=== PATIENT | female | born 1960 | race Caucasian/White ===

== ENCOUNTER 2022-08-10 04:38 | Emergency (ER) | payer BC, SELFPAY ==
--- NOTE | 2022-08-10 04:42 | ED_ITS ---
HPI - Epistaxis General Chief complaint: Epistaxis Stated complaint: Nose bleed Time Seen by Provider: 08/10/22 04:41 Related Data Allergies Allergy/AdvReac Type Severity Reaction Status Date / Time Penicillins Allergy Unknown Verified 12/05/19 09:48 [facility] Social History Social History (System 12/05/19 @ 09:48 by Rachael Scott) Smoking status: Never smoker Alcohol intake: current Discharge Plan Discharge Follow-up/Referrals: Ayden,Vj Newell MD [Primary Care Provider] -
[2022-08-10 04:43] VITALS: BP 153/100; PULSE 68; RESP 14; TEMP 36.6; O2SAT 100
--- NOTE | 2022-08-10 05:06 | ED.EPISTAXIS ---
HPI - Epistaxis General Chief complaint: Epistaxis Stated complaint: Nose bleed Time Seen by Provider: 08/10/22 04:41 History of Present Illness HPI Narrative: Patient is a 61-year-old female with a history of hypertension, diabetes presenting with epistaxis. Patient states that approximately 12:00 she first developed a nosebleed. States that it has been coming and going since then. States that she has been using a rolled up tissue to put in her nostril to stop it. She has not applied consistent pressure. The bleeding continued and was interfering with sleep so she came in for evaluation. Patient states that many years ago she required cauterization for recurrent nosebleeds. Patient is not on blood thinners. States she takes a daily aspirin. Denies shortness of breath, cough, chest pain, abdominal pain, vomiting. Related Data Allergies Allergy/AdvReac Type Severity Reaction Status Date / Time Penicillins Allergy Unknown Verified 12/05/19 09:48 Review of Systems Review of Systems: All systems reviewed & are unremarkable except as noted in HPI and below PMFSH Social History Social History Smoking status: Never smoker Alcohol intake: current Exam Narrative: GENERAL: Well-appearing, well-nourished, and in no acute distress. HEAD: Normocephalic, atraumatic. EYES: PERRLA and EOMI. ENT: Right nostril with epistaxis, appears to be a small source of bleeding on the septum. Mucous membranes moist. NECK: Supple. CHEST: Clear to auscultation. No respiratory distress. HEART: Regular rate and rhythm. No murmur heard. Normal peripheral pulses. ABDOMEN: Soft, nontender, nondistended, normal active bowel sounds. EXTREMITIES: Normal range of motion. No edema. SKIN: Warm, dry, no rash. NEURO: No focal deficits. Alert and oriented x3. PSYCH: Normal mood and affect. Course Course Emergency Course: Patient is a 61-year-old female presenting with epistaxis. Patient is hypertensive, otherwise vitals are within normal limits. Exam is remarkable for right-sided epistaxis. Nasal clamp placed. Epistaxis resolved with pressure. Provided Afrin to be used for the next 24 hours as needed. Provided the number for ENT for follow-up. Appropriate return precautions given. Patient voiced understanding and is agreeable with plan. Discharged in stable condition. Vital Signs Vital signs: Vital Signs Temperature 97.9 F 08/10/22 04:43 Pulse Rate 68 08/10/22 04:43 Respiratory Rate 14 08/10/22 04:43 Blood Pressure 153/100 H 08/10/22 04:43 Pulse Oximetry 100 08/10/22 04:43 Oxygen Delivery Room Air 08/10/22 04:43 Temperature 97.9 F 08/10/22 04:43 Pulse Rate 68 08/10/22 04:43 Respiratory Rate 14 08/10/22 04:43 Blood Pressure 153/100 H 08/10/22 04:43 Pulse Oximetry 100 08/10/22 04:43 Oxygen Delivery Room Air 08/10/22 04:43 Critical Care Time Critical Care Time Critical Care Time: No Discharge Plan Discharge Clinical Impression: Epistaxis Patient Disposition: Home, Self-Care Condition: Stable Additional Instructions: Please use the Afrin for a maximum of 2 days. Please follow-up with your PCP and ENT. If your symptoms worsen, you become lightheaded, have difficulty breathing, or other worrisome symptoms arise, please return to the ER. Follow-up/Referrals: [facility] [Provider Group] Ayden,Vj Newell MD [Primary Care Provider] -
[2022-08-10] MEDS: OXYMETAZOLINE HCL 0.05% NAS 15 ML BTL (*BKC) 1 SPRAY NASAL (05:50)
== END 2022-08-10 06:52 | disposition home or self-care (01) ==
PROVIDERS: Emergency Provider Emergency Medicine; PCP Internal Medicine
DX: R04.0 Epistaxis (principal); E11.9 Type 2 diabetes mellitus without complications; I10 Essential (primary) hypertension; Z79.82 Long term (current) use of aspirin
CPT/HCPCS: 99283; A9270